=== PATIENT | male | born 2000 | race Caucasian/White ===

== ENCOUNTER 2020-02-28 00:05 | Outpatient (CLI) | payer OTHER, SELFPAY ==
[2020-02-28 16:41] LABS: SARS-CoV-2 RNA PCR Negative
== END 2020-02-28 00:06 | disposition home or self-care (01) ==
LOC: ANHCOVIDDT 00:06
PROVIDERS: Visit Provider Surgery
DX: Z01.812 Encounter for preprocedural laboratory examination (principal); Z20.828 Contact with and (suspected) exposure to other viral communicable diseases
CPT/HCPCS: 87635; C9803; U0003

== ENCOUNTER 2020-02-28 08:31 | Outpatient (CLI) | payer OTHER, SELFPAY ==
--- NOTE | 2020-02-28 08:34 | ECG_ITS ---
Measurements Intervals [place] Rate: 57 P: 73 [place]: 149 QRS: 83 QRSD: 99 T: 67 QT: 404 QTc: 394 Interpretive Statements SINUS BRADYCARDIA WITH SINUS ARRHYTHMIA ST ELEVATION IN DIFFUSE LEADS- PROBABLY EARLY REPOLARIZATION BORDERLINE ECG Electronically Signed On 02-28-2020 8:58:10 CDT by Tong Delgado D.O.
== END 2020-02-28 08:32 | disposition home or self-care (01) ==
LOC: ANHSURGERY 08:34
PROVIDERS: PCP Pediatrics; Visit Provider Surgery
DX: Z86.79 Personal history of other diseases of the circulatory system (principal); R94.31 Abnormal electrocardiogram [ECG] [EKG]
CPT/HCPCS: 93005

== ENCOUNTER 2020-03-01 01:49 | Day surgery (SDC) | payer OTHER, SELFPAY ==
[2020-02-22 09:21] VITALS: BMI 19.8
--- NOTE | 2020-02-29 10:50 | PM.SD ---
Same Day Admit/Disch: HPI History of Present Illness Chief complaint: Left Inguinal Hernia Narrative: Fawad Milan is a 19 year old male who noted in early November a left inguinal bulge that was occasionally painful. He saw me in the office and was diagnosed with a reducible left inguinal hernia. He was also, at that time, recovering from mononucleosis. He has since recovered and is now taken to surgery for repair of his left inguinal hernia. He has had no previous hernia surgery. [facility] Past Medical History Medical History (Updated 02/29/20 @ 15:34 by Jamaal Huitron MD) Anxiety Atrial fibrillation 2015- CONVERTED W/ ELECTRICAL CARDIOVERSION Depression History of hyperthyroidism STATES NO LONGER TAKES MEDICATION Mononucleosis Family History Family History Father No problems noted. Mother Heart disease Sibling Down's syndrome Diabetes mellitus Thyroid disease Social History Social History Smoking packs per day: 0.5 Smoking cigarettes per day: 10.0 Years smoked: 2 Smoking pack-years: 1.00 Smoking status: Former smoker Tobacco type: cigarettes Substance use: never Gender identity (if verbalized by the patient): Male Same Day Admit/Disch: Med Pre-admit Medications Home Medications Medication Instructions Recorded Confirmed Type multivitamin 1 ea PO DAILY 02/22/20 03/01/20 History hydrocodone-acetaminophen 1 - 2 tablet PO Q6H PRN #7 tablet 03/01/20 Rx ketorolac 10 mg PO Q6H 4 Days #16 tablet 03/01/20 Rx Exam Const: General: comfortable, no acute distress, alert and awake HENMT: Head: normocephalic and atraumatic Mouth: Yes Normal oral and palatal mucosa present Eyes: Conjunctivae: conjunctivae normal Pupils: Equal, round and reactive pupils present EOM: EOMs intact bilaterally Neck: Neck: normal visual inspection, no lymphadenopathy and nontender Resp: Effort & Inspection: normal respiratory effort Auscultation: clear to auscultation bilaterally Cardio: Rate: regular rate Rhythm: regular rhythm Heart sounds: no gallops, no murmurs and no rubs GI: Inspection: non-distended GI Palp: Yes Soft to palpation, No Tenderness to palpation present (GI), No Hepatomegaly present and No Splenomegaly present : Male General Exam: Yes normal external exam Penis: Yes normal penis Scrotum: scrotum normal and inguinal hernia on the left (Left inguinal hernia, easily noted, reducible.) Testes: Testes normal Skin: Lesions: no lesions Rashes: no rashes Neuro: General: no focal motor deficits and CN's II-XI intact bilaterally Cranial nerves: Yes Equal, round and reactive pupils present, Yes Bilaterally intact EOM present, Yes facial symmetry and Yes Midline tongue present Speech: normal speech Motor exam (neuro): 5/5 motor strength present throughout and Motor abnormalities not present Extrem: General: no clubbing, cyanosis or edema and edema Psych: Affect: normal affect Thought process: Normal thought process present Insight: Good insight present (Psych) DS: Summary Time Spent with Patient Time attestation: Total time spent providing and/or coordinating discharge services: DS: Admitting Diagnosis Admitting Diagnosis Admitting Diagnosis: Personal history of other diseases of the circulatory system DS: Discharge Diagnosis Discharge Diagnosis (1) Inguinal hernia of left side without obstruction or gangrene: Code(s): K40.90 - Unilateral inguinal hernia, without obstruction or gangrene, not specified as recurrent Status: Chronic Assessment and Plan: I have discussed the findings with the patient and recommended repair of his left inguinal hernia. I discussed the procedure the risks the benefits with him. The usual recovery and potential complications were discussed. All questions were answered. He understands and agrees to go ahead. Dis
--- NOTE | 2020-02-29 15:33 | WPDANESEPPF ---
Anes - Initial Pre Proc Eval Procedure: Operation Date: 03/01/20 09:00 Proposed Procedures p Left Inguinal Hernia Repair - Colt Tan MD Date/Time: 02/29/20 15:33 Surgeon: Colt Tan MD Pre Op Diagnosis: Left Inguinal Hernia Patient Data Age: 19 Gender: M Height: 1.73 m Weight: 58.97 kg Allergies Allergy/AdvReac Type Severity Reaction Status Date / Time No Known Allergies Allergy Verified 02/22/20 09:23 Home Medications Medication Instructions Recorded Confirmed Type multivitamin 1 ea PO DAILY 02/22/20 02/22/20 History hydrocodone-acetaminophen 1 - 2 tablet PO Q6H PRN #7 tablet 03/01/20 Rx ketorolac 10 mg PO Q6H 4 Days #16 tablet 03/01/20 Rx ECG: Date of Service: 02/28/20 Procedure(s): CA 12 lead EKG Accession Number(s): [id number] cc: ~ Measurements Intervals [place] Rate: 57 P: 73 [place]: 149 QRS: 83 QRSD: 99 T: 67 QT: 404 QTc: 394 Interpretive Statements SINUS BRADYCARDIA WITH SINUS ARRHYTHMIA ST ELEVATION IN DIFFUSE LEADS- PROBABLY EARLY REPOLARIZATION BORDERLINE ECG Electronically Signed On 02-28-2020 8:58:10 CDT by Tong Delgado D.O. Dictated By: Tong Delgado DO 02/28/20 0901 Patient hx anesthesia problems: none Family hx anesthesia problems: none PMFSH Past Medical History Medical History (Updated 02/29/20 @ 15:34 by Jamaal Huitron MD) Anxiety Atrial fibrillation 2014- CONVERTED W/ ELECTRICAL CARDIOVERSION Depression History of hyperthyroidism STATES NO LONGER TAKES MEDICATION Mononucleosis Family History Family History Father No problems noted. Mother Heart disease Sibling Down's syndrome Diabetes mellitus Thyroid disease Social History Social History Smoking packs per day: 0.5 Smoking cigarettes per day: 10.0 Years smoked: 2 Smoking pack-years: 1.00 Smoking status: Former smoker Tobacco type: cigarettes Substance use: never Gender identity (if verbalized by the patient): Male Anes - Eval Final PreProcedure Day of Procedure 02/29/20 15:33 Patient weight: normal Heart: regular rate and rhythm Lungs: clear to auscultation and normal air movement Airway: Mallampati scale class II Neurological: alert and oriented Last oral intake: >/= 8 hours ASA classification: II Emergent: no Anesthetic plan: proceed Anesthesia type and monitoring: general GIVS Informed Consent: The patient's anesthetic plan and its attendant risks and benefits were discussed with the patient/family/POA. Questions were solicited and answers provided to the satisfaction of the patient/family/POA.
--- NOTE | 2020-03-01 06:38 | WPDHPUPDATE1 ---
History and Physical Update Update Date/Time: 03/01/20 06:38 History and Physical has been reviewed, including an updated exam of the patient. There are NO changes in the patient's condition. Risks, benefits, and alternatives have been discussed and questions answered. Patient agrees to proceed with procedure.
[2020-03-01 07:30] VITALS: BP 96/61; PULSE 59; RESP 18; TEMP 36.8; O2SAT 100
[2020-03-01] MEDS: LACTATED RINGERS 1,000 ML 30 ML IV CONT ×2 (07:30→10:10)
[2020-03-01] MEDS: ceFAZolin 2 GM/D5W 50 ML 2 GM/50 ML BAG IVPB (09:08)
[2020-03-01 10:10] VITALS: BP 95/40; PULSE 61; RESP 12; TEMP 36.2; O2SAT 100
--- NOTE | 2020-03-01 10:18 | PM.PROC ---
Procedure Note - Detailed Date of procedure: 03/01/20 Pre-op diagnosis: Left Inguinal Hernia Left inguinal hernia Post-op diagnosis: other (Direct inguinal hernia) Procedure performed: Left inguinal hernia repair with 6 centimeter Parietex hernia mesh system Description of procedure: The patient was taken to surgery and IV sedation was administered. The left groin and genitalia were prepped and draped. The proposed incision was marked on the skin and then local anesthesia was infiltrated into the skin and the deeper subcutaneous tissues. Incision was made and dissection was carried down through Rodriguez's fascia to the external oblique aponeurosis. Crossing veins were cauterized and divided. The external oblique aponeurosis was then exposed as was the external ring. Additional local anesthetic was infiltrated deep to the aponeurosis in the area of the spermatic cord and inguinal canal contents. We then opened the external oblique aponeurosis laterally and extended this incision medially through the external ring. The leaves of the aponeurosis were freed from the underlying inguinal canal contents. Care was taken not to injure the ileoinguinal nerve which was dissected out and left attached to the spermatic cord. The spermatic cord was then mobilized medially on a Purdon drain. It was mobilized back to the internal ring. The direct hernia was dissected free from the spermatic cord. It was dissected back to its neck. The sac was then incised circumferentially just off the neck. It was divided through the transversalis fascia circumferentially. The hernia sac was then dunked into the retroperitoneum. An 6 centimeter Parietex little shell tribe was chosen. It was folded to form a plug. The plug was placed in the defect. The edges were sutured to the transversalis fascia with interrupted 3 0 Vicryl suture. The hernia defect was also partially closed with interrupted 3 0 Vicryl suture. We looked in the spermatic cord to check for any sign of an indirect hernia. None was found. The patch was then cut to the appropriate size. It was placed over the inguinal canal floor with the lateral leaves passing beyond the cord. The cord and ileoinguinal nerve were then laid over the patch. The external oblique aponeurosis was closed with interrupted 3 0 Vicryl suture. Rodriguez's fascia was closed with interrupted 3 0 Vicryl suture. Four 0 Vicryl subcutaneous and subcuticular skin stitches were placed. The skin was finally closed with a running 4 0 Monocryl skin suture. The wound was dressed with Exofin surgical adhesive. Patient was awakened and taken to recovery in good condition. Sponge and needle counts were correct x2. Anesthesia: MAC and local (0.5% Marcaine mixed with Exparel) Surgeon: Colt Tan MD Student Development Dean: Maylin PARRY Estimated blood loss (mL): 5 Drains: No Packing: No Pathology: none sent Complications: None Condition: stable Disposition: PACU Findings: Moderate direct left inguinal hernia
[2020-03-01 10:40] VITALS: BP 112/57; PULSE 67; RESP 12; O2SAT 100
--- NOTE | 2020-03-01 11:06 | SUR.PHASEII ---
1100 updated mom on surgery and pt condtion, mom is going to run home and then will be back
[2020-03-01 11:20] VITALS: BP 110/74; PULSE 62; RESP 12
== END 2020-03-01 12:20 | disposition home or self-care (01) ==
PROVIDERS: Visit Provider Surgery
PROC: (CPT 49505; principal; 2020-03-01 09:00)
DX: K40.90 Unilateral inguinal hernia, without obstruction or gangrene, not specified as recurrent (principal); F41.8 Other specified anxiety disorders; Z87.891 Personal history of nicotine dependence
CPT/HCPCS: 49505; 87635; 93005; A9270; C1781; C9290; C9803; J0690; J2250; J2370; J2405; J2704; J3010; J7120; U0003